=== PATIENT | female | born 1980 ===

== ENCOUNTER 2018-01-21 14:40 | Emergency (ER) | payer OTHER ==
[~2018-01-21] VITALS: Ht 154.9 cm; Wt 85.3 kg
[2018-01-21] MEDS ORDERED: NORVASC5 MG (15:21)
[2018-01-21] MEDS ORDERED: CATAPRES0.1 MG (15:21)
[2018-01-21] MEDS ORDERED: PROZAC10 MG (15:21)
== END 2018-01-21 18:39 | disposition home or self-care (01) ==
LOC: ER 14:40
DX: D25.9 Leiomyoma of uterus, unspecified (principal); N92.1 Excessive and frequent menstruation with irregular cycle; R42 Dizziness and giddiness